=== PATIENT | female | born 1970 | race Caucasian/White ===

== ENCOUNTER 2018-11-07 08:17 | Inpatient (IN) | payer OTHER, MEDICAID | END 2018-11-17 15:47 | disposition home or self-care (01) | LOC: ER 08:17 → TELE 08:18 → ICU WEST 16:37 | DX: R00.1 Bradycardia, unspecified (principal); I24.9 Acute ischemic heart disease, unspecified; B19.10 Unspecified viral hepatitis B without hepatic coma; E44.0 Moderate protein-calorie malnutrition; E27.40 Unspecified adrenocortical insufficiency; E23.0 Hypopituitarism; L93.0 Discoid lupus erythematosus; E66.9 Obesity, unspecified; M94.0 Chondrocostal junction syndrome [Tietze]; J43.9 Emphysema, unspecified; M06.9 Rheumatoid arthritis, unspecified; Z86.73 Personal history of transient ischemic attack (TIA), and cerebral infarction without residual deficits; Z87.891 Personal history of nicotine dependence; D69.6 Thrombocytopenia, unspecified; J44.9 Chronic obstructive pulmonary disease, unspecified; E86.0 Dehydration; E87.6 Hypokalemia ==

== ENCOUNTER 2019-10-10 16:35 | Inpatient (IN) | payer OTHER, MEDICAID ==
[~2019-10-10] VITALS: Ht 165.1 cm; Wt 93.9 kg
[~2019-10-10 16:35] MED LIST: CIPR-173 PO; HYDR10T PO; LEV50T PO; METR500T PO; MIDO5TAB22 PO
[2019-10-10] MEDS ORDERED: ONDANSETRON ODT 4 MG TAB PO ONE (18:15)
[2019-10-10] MEDS ORDERED: SODIUM CHLORIDE 0.9% 1,000 ML IVB ONE (19:44)
[2019-10-10] MEDS ORDERED: ZINC SULFATE 220mg CAP or TAB PO ONE (19:45)
[2019-10-10] MEDS ORDERED: DOXYCYCLINE 100MG/250ML 250 ML IV ONE (19:45)
[2019-10-10] MEDS ORDERED: DexAMETHasone 4 MG TAB PO ONE (20:00)
[2019-10-10] MEDS ORDERED: ONDANSETRON HCL 4 MG/2 ML VIAL IV PRN (20:45)
[2019-10-10] MEDS ORDERED: TEMAZEPAM 15 MG CAP PO PRN (20:45)
[2019-10-10] MEDS ORDERED: ACETAMINOPHEN 325 MG TAB PO PRN (20:45)
[2019-10-10] MEDS: DOXYCYCLINE 100MG/250ML 250 ML IV SCH (21:52)
[2019-10-10 22:57] LABS: Basophils # (auto) 0 10 ^3/uL (0-0.2); Basophils % (auto) 0.5 % (0.0-2.0); Eosinophils # (auto) 0.1 10 ^3/uL (0-0.8); Hematocrit 44.9 % (36.0-46.0); Hemoglobin 14.5 g/dL (12.2-16.2); Lymphocytes # (auto) 1.5 10 ^3/uL (0.4-5.4); Lymphocytes % (auto) 25.6 % (10.0-50.0); Mean Corpuscular Hemoglobin 29.2 pg (28.0-32.0); Mean Corpuscular Hgb Conc. 32.2 g/dL (32.0-36.0); Mean Corpuscular Volume 90.4 fL (80.0-100.0); Monocytes # (auto) 0.3 10 ^3/uL (0-1.3); Monocytes % (auto) 5.8 % (0.0-12.0); Neutrophils % (auto) 67.1 % (37.0-80.0); Nucleated Red Blood Cells % 0.1 %; Platelet Count (auto) 126 10^3/uL (140-450); Red Blood Cells 4.97 10^6/uL (4.0-5.20); Red Cell Distribution Width 16.3 % (11.8-14.3)
[2019-10-10] MEDS: FAMOTIDINE 20 MG TAB PO SCH (22:59)
[2019-10-10 23:12] LABS: Urine Bacteria FEW /hpf (None Seen); Urine Blood Negative /uL (Negative); Urine Mucus FEW (None Seen); Urine Specific Gravity 1.017 (1.001-1.035); Urine WBC 2 /hpf (0 - 5)
[2019-10-10 23:16] LABS: Albumin 3.9 g/dL (3.4-5.0); Calcium 10.3 mg/dL (8.5-10.1); Magnesium 2.6 mg/dL (1.6-2.6); Potassium 3.3 mmol/L (3.5-5.1)
[2019-10-10 23:20] LABS: BUN/Creatinine Ratio 17.1; Bilirubin, Total 0.4 mg/dL (0.2-1.0); CRP High Sensitivity 0.21 mg/dL (< 0.3); Total Protein 7.7 g/dL (6.4-8.2)
[2019-10-11 08:11] LABS: Basophils # (auto) 0 10 ^3/uL (0-0.2); Basophils % (auto) 0.8 % (0.0-2.0); Eosinophils # (auto) 0 10 ^3/uL (0-0.8); Hematocrit 43.9 % (36.0-46.0); Hemoglobin 14.3 g/dL (12.2-16.2); Lymphocytes # (auto) 0.4 10 ^3/uL (0.4-5.4); Lymphocytes % (auto) 10.5 % (10.0-50.0); Mean Corpuscular Hemoglobin 29.1 pg (28.0-32.0); Mean Corpuscular Hgb Conc. 32.6 g/dL (32.0-36.0); Mean Corpuscular Volume 89.3 fL (80.0-100.0); Monocytes # (auto) 0.1 10 ^3/uL (0-1.3); Monocytes % (auto) 1.3 % (0.0-12.0); Neutrophils # (auto) 3.7 10 ^3/uL (1.6-8.6); Neutrophils % (auto) 87.4 % (37.0-80.0); Platelet Count (auto) 129 10^3/uL (140-450); Red Blood Cells 4.91 10^6/uL (4.0-5.20); Red Cell Distribution Width 16.2 % (11.8-14.3); White Blood Cell 4.2 10^3/uL (4.4-10.8)
[2019-10-11 08:27] LABS: Albumin 3.4 g/dL (3.4-5.0); Calcium 9.8 mg/dL (8.5-10.1)
[2019-10-11 08:35] LABS: BUN/Creatinine Ratio 16.2; Bilirubin, Total 0.4 mg/dL (0.2-1.0); Total Protein 7.1 g/dL (6.4-8.2)
[2019-10-11 08:38] LABS: Potassium 6.9 mmol/L (3.5-5.1)
--- NOTE | 2019-10-11 08:47 | NUR ---
Telemetry admit from ER [facility] GATES admitted to Telemetry unit after SBAR received. Patient oriented to Bouchra Vela RN primary RN, unit, room, bed, and unit policies regarding patient care and visiting hours. Patient now on continuous telemetry monitoring, tele box #20 and telemetry reading on arrival to unit is SR. Patient on room air. Encouraged to call if they need something. All questions and concerns addressed, patient verbalized understanding.
--- NOTE | 2019-10-11 08:48 | NUR ---
Paging monotype machinist hospitalist Critical lab of potassium:6.9 Waiting for call back.
--- NOTE | 2019-10-11 09:21 | NUR ---
Paging jury consultant hospitalist For critical potassium 6.9 Waiting for call back
[2019-10-11 09:24] VITALS: BP 111/64
[2019-10-11] MEDS: CHOLECALCIFEROL (VITD3) 2,000 UNIT CAP PO SCH (09:24)
[2019-10-11] MEDS: FAMOTIDINE 20 MG TAB PO SCH ×2 (09:24→22:14)
[2019-10-11] MEDS: DOXYCYCLINE 100MG/250ML 250 ML IV SCH ×2 (09:24→22:14)
[2019-10-11] MEDS: ASCORBIC ACID 1,000 MG TAB PO SCH (09:24)
[2019-10-11] MEDS: ENOXAPARIN SOD 40 MG/0.4 ML SYRINGE SC SCH (09:25)
--- NOTE | 2019-10-11 10:35 | NUR ---
Received call from Dr. Shaikh PLEITEZ aware of critical potassium: 6.9 MD to input new orders for redraw. Previous potassium 3.3,
[2019-10-11 12:22] VITALS: BP 126/89
--- NOTE | 2019-10-11 15:50 | NUR ---
EKG done and filed in chart for reference. Will continue to monitor.
[2019-10-11] MEDS ORDERED: HYDR200T36 PO (15:52)
[2019-10-11] MEDS ORDERED: CHOL20007 PO (15:52)
[2019-10-11] MEDS ORDERED: TEMA30CA5 PO (15:52)
[2019-10-11 17:00] VITALS: BP 101/65
[2019-10-11 22:00] VITALS: BP 100/64
--- NOTE | 2019-10-11 23:55 | NUR ---
IV removal IV DC'd due to infiltration, catheter fully intact. Pressure dressing applied to site. Patient tolerated well.
--- NOTE | 2019-10-12 00:43 | NUR ---
IV insertion IV access obtained, via clean sterile technique by inserting 22 gauge catheter at right forearm after 1 attempt. IV secured properly. No trauma to site. Patient tolerated well.
[2019-10-12 05:04] VITALS: BP 90/58
[2019-10-12 06:47] LABS: Basophils # (auto) 0 10 ^3/uL (0-0.2); Basophils % (auto) 0.5 % (0.0-2.0); Eosinophils # (auto) 0 10 ^3/uL (0-0.8); Eosinophils % (auto) 0.5 % (0.0-7.0); Hematocrit 38.1 % (36.0-46.0); Hemoglobin 12.4 g/dL (12.2-16.2); Lymphocytes # (auto) 1.5 10 ^3/uL (0.4-5.4); Lymphocytes % (auto) 32.3 % (10.0-50.0); Mean Corpuscular Hemoglobin 29.4 pg (28.0-32.0); Mean Corpuscular Hgb Conc. 32.6 g/dL (32.0-36.0); Mean Corpuscular Volume 90.1 fL (80.0-100.0); Monocytes # (auto) 0.3 10 ^3/uL (0-1.3); Monocytes % (auto) 6.2 % (0.0-12.0); Neutrophils # (auto) 2.9 10 ^3/uL (1.6-8.6); Neutrophils % (auto) 60.5 % (37.0-80.0); Nucleated Red Blood Cells % 0.2 %; Platelet Count (auto) 95 10^3/uL (140-450); Red Blood Cells 4.23 10^6/uL (4.0-5.20); Red Cell Distribution Width 15.4 % (11.8-14.3); White Blood Cell 4.7 10^3/uL (4.4-10.8)
--- NOTE | 2019-10-12 06:50 | NUR ---
Respiratory note: PT IS AWAKE, AND ALERT. NO RESPIRATORY DISTRESS NOTED. SPO2 94% ON RA, HR 48, RR 16, BS ARE DIMINISHED BILATERALLY. NO FURTHER RESPIRATORY INTERVENTIONS INDICATED. WILL CONTINUE TO MONITOR PT. CHARTING COMPLETE FROM OUTSIDE OF PT ROOM PER COVID-19 PRECAUTIONS/PROTOCOL.
--- NOTE | 2019-10-12 07:00 | NUR ---
Opening Shift Note Assumed care of patient, awake and alert. No S/S of distress/SOB or pain. Instructed on POC and to call for assist PRN, will continue to monitor for changes Q1hr and PRN.
[2019-10-12 07:08] LABS: BUN/Creatinine Ratio 22.4; Potassium 3.5 mmol/L (3.5-5.1)
[2019-10-12 08:00] VITALS: BP 110/67
--- NOTE | 2019-10-12 08:50 | NUR ---
Patient consented verbal for plaquenil.
[2019-10-12] MEDS: FAMOTIDINE 20 MG TAB PO SCH ×2 (08:55→21:43)
[2019-10-12] MEDS: ASCORBIC ACID 1,000 MG TAB PO SCH (08:55)
[2019-10-12] MEDS: DOXYCYCLINE 100MG/250ML 250 ML IV SCH (08:55)
[2019-10-12] MEDS: ENOXAPARIN SOD 40 MG/0.4 ML SYRINGE SC SCH (08:56)
[2019-10-12] MEDS: CHOLECALCIFEROL (VITD3) 2,000 UNIT CAP PO SCH (08:56)
[2019-10-12] MEDS ORDERED: ZINC SULFATE 220mg CAP or TAB PO ONE (10:45)
[2019-10-12] MEDS: HYDROcodone-ACET 5/325MG TAB PO PRN (11:56)
[2019-10-12 12:00] VITALS: BP 103/60
--- NOTE | 2019-10-12 14:04 | NUR ---
PATIENT COMPLAINING OF NAUSEA.
--- NOTE | 2019-10-12 14:06 | NUR ---
PATIENT COMPLAINS OF LOWER BACK PAIN AND NAUSEA.
--- NOTE | 2019-10-12 14:09 | NUR ---
EKG COMPLETED CALLED DR. MANDUJANO WITH RESULTS.
--- NOTE | 2019-10-12 14:17 | NUR ---
RETURNED CALL FROM DR. MANDUJANO ORDERED STAT TROPONIN AND CARDIO CONSULT.
[2019-10-12] MEDS ORDERED: ASPirin 81 mg TAB PO ONE (14:30)
--- NOTE | 2019-10-12 14:32 | NUR ---
PLACED PATIENT ON 2L N/C. VITALS DONE BP IS 94/63 O2 SAT IS 98% ON 2 L N/C HEART RATE IS 55
[2019-10-12] MEDS: NITROGLYCERIN 0.4 MG SL TAB SL PRN ×2 (14:43→14:48)
--- NOTE | 2019-10-12 14:50 | NUR ---
CHEST PRESSURE IS GONE.
--- NOTE | 2019-10-12 15:28 | NUR ---
DR. DURAN AT BEDSIDE DISCUSSING POC WITH PATIENT
[2019-10-12 17:00] VITALS: BP 96/59
--- NOTE | 2019-10-12 19:40 | NUR ---
Opening Shift Note Assumed care of patient, awake and alert. No S/S of distress/SOB or pain. Instructed on POC and questions answered. Bed locked in lowest position with side rails up x2 for safety, call light is within reach and encouraged to call for assistance PRN, will continue to monitor for changes Q1hr and PRN.
[2019-10-12 21:51] VITALS: BP 86/61
[2019-10-12] MEDS ORDERED: ATORVASTATIN 20 MG TAB PO SCH (22:00)
--- NOTE | 2019-10-13 00:20 | NUR ---
IV insertion IV access obtained, via clean sterile technique by inserting 22 gauge catheter at right forearm after 2 attempt(s). IV secured properly. No trauma to site. Patient tolerated well.
[2019-10-13] MEDS: DOXYCYCLINE 100MG/250ML 250 ML IV SCH ×3 (00:34→21:17)
[2019-10-13 05:00] VITALS: BP 95/56
[2019-10-13 06:10] LABS: Cholesterol 127 mg/dL (< 200); HDL Cholesterol 41 mg/dL (40-59); LDL Cholesterol 69 mg/dL (< 100); Triglycerides 153 mg/dL (< 150)
--- NOTE | 2019-10-13 07:43 | NUR ---
Respiratory note: POX: HR 53, RR 16, SPO2 96% ON 1L NC, BS CLEAR. NO SIGNS OR SYMPTOMS OF RESPIRATORY DISTRESS NOTED AT THIS TIME. WILL CONTINUE TO MONITOR ORDERED.
[2019-10-13 08:35] VITALS: BP 95/57
[2019-10-13] MEDS: HYDROcodone-ACET 5/325MG TAB PO PRN ×3 (09:01→23:37)
--- NOTE | 2019-10-13 09:15 | NUR ---
RECEIVED CALL FROM [facility] INFORMING ME THAT THIS PATIENT IS NEGATIVE FOR WHITLEY VIRUS.
[2019-10-13] MEDS: FAMOTIDINE 20 MG TAB PO SCH ×2 (09:38→21:18)
[2019-10-13] MEDS: ENOXAPARIN SOD 40 MG/0.4 ML SYRINGE SC SCH (09:39)
[2019-10-13] MEDS: ASCORBIC ACID 1,000 MG TAB PO SCH (09:40)
[2019-10-13] MEDS: CHOLECALCIFEROL (VITD3) 2,000 UNIT CAP PO SCH (09:40)
[2019-10-13] MEDS ORDERED: ASPirin 81 mg TAB PO SCH (10:00)
[2019-10-13] MEDS ORDERED: ZINC SULFATE 220mg CAP or TAB PO SCH (10:00)
[2019-10-13 12:54] VITALS: BP 89/46
--- NOTE | 2019-10-13 13:34 | NUR ---
TAKEN TO ROOM 217 A REPORT GIVEN TO AJ Hoffman
--- NOTE | 2019-10-13 13:35 | NUR ---
RECEIVED PATIENT FROM [address] TO ROOM 217A PATIENT IS ALERT AND ORIENTED X4, NO SOB OR S/S DISTRESS. REPORTS 8/10 GENERALIZED PAIN, WILL MEDICATE ACCORDINGLY. ON CONTINUOUS TELE #20 WITH SR 86 ON ARRIVAL. BED IN LOW AND LOCKED POSITION. ADVISED TO CALL FOR ASSISTANCE PRN. WILL CONTINUE TO MONITOR Q1 AND PRN.
[2019-10-13] MEDS ORDERED: cefTRIAXone 1GM/50ML D5W 50 ML IV ONE (15:30)
--- NOTE | 2019-10-13 16:50 | NUR ---
Radiology is requesting a 20g IV access for CT/angio. Patient currently has a 22g. patient is a hard stick, and have had multiple attempts today.
[2019-10-13 17:00] VITALS: BP 93/59
--- NOTE | 2019-10-13 17:58 | NUR ---
An order for midline in place. Requesting for 20g for CT/angio patient to remain NPO until procedure is completed.
--- NOTE | 2019-10-13 19:30 | NUR ---
Opening Shift Note Assumed care of patient, AOX4. No S/S of distress/SOB. Fall and safety precautions and in place. Call light within reach and able to use. Instructed on POC and to call for assist PRN, patient verbalized understanding and in agreement. Will continue to monitor for changes Q1hr and PRN.
--- NOTE | 2019-10-13 20:00 | NUR ---
NEW IV 20G NURSES AT BEDSIDE UNABLE TO OBTAIN MIDLINE; ABLE TO OBTAIN LAC 20G. PATIENT REMAINS NPO. WILL CALL RADIOLOGY.
--- NOTE | 2019-10-13 20:13 | NUR ---
RADIOLOGY CALLS ATTEMPTED RADIOLOGY CALLED 3 TIMES WITH NO ANSWER. PATIENT INFORMED. WILL ATTEMPT LATER.
[2019-10-13] MEDS ORDERED: IOHEXOL 350 MG/ML 100ML IJ ONE (20:33)
--- NOTE | 2019-10-13 20:40 | NUR ---
RADIOLOGY CALLED SPOKE TO RADIOLOGIST TECH; REQUESTED THAT PT BE TAKEN DOWN. PATIENT TAKEN DOWN TO RADIOLOGY VIA WHEELCHAIR IN NO DISTRESS. WILL CONTINUE TO MONITOR.
--- NOTE | 2019-10-13 20:50 | NUR ---
RETURN TO UNIT RADIOLOGY CALLED STATING PATIENT IS READY TO BE PICKED UP. PATIENT BROUGHT BACK UP TO UNIT BY THIS RN VIA WHEELCHAIR. PATIENT RETURNED TO BED BACK SAFETY WITH NO DISTRESS. POST-CONTRAST EDUCATION REINFORCED, PATIENT VERBALIZED UNDERSTANDING AND IN AGREEMENT. WILL CONTINUE TO MONITOR.
[2019-10-13 22:00] VITALS: BP 109/62
[2019-10-14 04:45] VITALS: BP 83/54
[2019-10-14 05:00] VITALS: BP 107/66
--- NOTE | 2019-10-14 05:00 | NUR ---
BP RECHECK PATIENT'S BLOOD PRESSURE SITTING POSITION AFTER AMBULATION 107/66 MMHG WITH A HEART RATE 56 BPM. WILL CONTINUE TO MONITOR.
--- NOTE | 2019-10-14 05:45 | NUR ---
LOW BP PATIENT'S BLOOD PRESSURE TAKEN IN SUPINE POSITION 83/54 MMHG WITH A HEART RATE 54 BPM. PATIENT DENIES DIZZINESS, LIGHTHEADEDNESS. WILL RECHECK. Addendum: 10/14/19 at 0554 by TAHMINA CHINCHILLA RN RN TIME CORRECTION: [id number]
--- NOTE | 2019-10-14 05:58 | NUR ---
HOSP PAGED HOSP PAGED FOR PATIENT'S LOW BLOOD PRESSURE AND C/O PAIN NOT RELIEVED BY CURRENT PAIN MEDICATION. AWAITING CALL BACK. WILL CONTINUE TO MONITOR.
[2019-10-14 06:01] LABS: Basophils # (auto) 0 10 ^3/uL (0-0.2); Basophils % (auto) 0.9 % (0.0-2.0); Eosinophils # (auto) 0.1 10 ^3/uL (0-0.8); Eosinophils % (auto) 2.2 % (0.0-7.0); Hematocrit 42.2 % (36.0-46.0); Hemoglobin 13.4 g/dL (12.2-16.2); Lymphocytes # (auto) 1.3 10 ^3/uL (0.4-5.4); Lymphocytes % (auto) 33.6 % (10.0-50.0); Mean Corpuscular Hgb Conc. 31.8 g/dL (32.0-36.0); Mean Corpuscular Volume 91.1 fL (80.0-100.0); Monocytes # (auto) 0.3 10 ^3/uL (0-1.3); Monocytes % (auto) 6.4 % (0.0-12.0); Neutrophils # (auto) 2.3 10 ^3/uL (1.6-8.6); Neutrophils % (auto) 56.9 % (37.0-80.0); Platelet Count (auto) 108 10^3/uL (140-450); Red Blood Cells 4.63 10^6/uL (4.0-5.20); Red Cell Distribution Width 15.7 % (11.8-14.3)
[2019-10-14] MEDS: HYDROcodone-ACET 5/325MG TAB PO PRN (06:25)
[2019-10-14 06:31] LABS: Potassium 3.8 mmol/L (3.5-5.1)
--- NOTE | 2019-10-14 06:35 | NUR ---
NO CALL BACK FROM ON-CALL HOSP HAVE NOT YET RECEIVED A CALL BACK FROM ON-CALL HOSPITALIST. WILL NOTIFY DY SHIFT RN IF NO CALL IS RECEIVED. WILL CONTINUE TO AWAIT CALL BACK AND CONTINUE TO MONITOR PATIENT.
[2019-10-14 06:40] LABS: Bilirubin, Total 0.2 mg/dL (0.2-1.0); Calcium 9.6 mg/dL (8.5-10.1)
--- NOTE | 2019-10-14 07:28 | NUR ---
RECEIVED PATIENT FROM [facility] SHIFT RN, AWAKE, AOX4. CURRENTLY DENIES PAIN, NO SOB OR S/S DISTRESS NOTED. PLAN OF CARE DISCUSSED. BED IN LOW AND LOCKED POSITION. ENCOURAGED TO CALL FOR ASSISTANCE PRN. PATIENT VERBALIZED UNDERSTANDING. WILL CONTINUE TO MONITOR Q1HR AND PRN.
[2019-10-14 08:00] VITALS: BP 92/54
[2019-10-14 09:00] VITALS: BP 92/54
[2019-10-14] MEDS ORDERED: cefTRIAXone 1GM/50ML D5W 50 ML IV SCH (09:00)
[2019-10-14] MEDS ORDERED: DEXT1SYP9 PO (09:32)
[2019-10-14] MEDS ORDERED: PANT40TA2 PO (09:32)
[2019-10-14] MEDS ORDERED: DOXY-112 PO (09:32)
[2019-10-14] MEDS ORDERED: ASCO500T11 PO (09:32)
[2019-10-14] MEDS: DOXYCYCLINE 100MG/250ML 250 ML IV SCH (10:00)
[2019-10-14] MEDS ORDERED: ASPirin 81 mg TAB PO SCH (10:00)
[2019-10-14] MEDS: ASCORBIC ACID 1,000 MG TAB PO SCH (10:00)
[2019-10-14] MEDS: FAMOTIDINE 20 MG TAB PO SCH (10:30)
[2019-10-14] MEDS: ENOXAPARIN SOD 40 MG/0.4 ML SYRINGE SC SCH (10:30)
[2019-10-14 11:44] VITALS: BP 94/63
--- NOTE | 2019-10-14 12:12 | NUR ---
Nutrition Assessment Notes Please refer to link for full assessment notes. Est Energy needs: [id number] kcals (22-25 kcal/kgBW) Est Protein needs: 113-150 gms/day (1.2-1.6 gm/kgBW) d/t pt respiratory distress Will continue to monitor and reassess prn. Addendum: 10/14/19 at [address] Amended: Links added.
--- NOTE | 2019-10-14 12:58 | NUR ---
PATIENT IS DISCHARGED AT THIS TIME PER MD'S ORDER. DISCHARGE AND FOLLOW UP INSTRUCTIONS PROVIDED. PATIENT IS AMBULATORY, ALERT AND ORIENTED AT THIS TIME. IV DISCONTINUED AND TELE BOX #36 RETURNED TO ICU.
[2019-10-14 13:00] VITALS: BP 90/63
== END 2019-10-14 12:58 | disposition home or self-care (01) | DRG 202 ==
LOC: ER 16:35 → TELE 16:36 → TELE-EAST 10-11 09:04 → TELE-CENTR 10-13 14:02
PROVIDERS: ADMIT Nurse Practitioner; ATTEND Internal Medicine
DX: J20.9 Acute bronchitis, unspecified (principal); J44.0 Chronic obstructive pulmonary disease with (acute) lower respiratory infection; E66.9 Obesity, unspecified; G47.30 Sleep apnea, unspecified; D69.6 Thrombocytopenia, unspecified; M06.9 Rheumatoid arthritis, unspecified; M19.90 Unspecified osteoarthritis, unspecified site; Z20.828 Contact with and (suspected) exposure to other viral communicable diseases; R07.89 Other chest pain; Z80.0 Family history of malignant neoplasm of digestive organs; Z82.49 Family history of ischemic heart disease and other diseases of the circulatory system; Z83.3 Family history of diabetes mellitus; Z90.710 Acquired absence of both cervix and uterus; Z88.5 Allergy status to narcotic agent; Z88.8 Allergy status to other drugs, medicaments and biological substances; Z88.6 Allergy status to analgesic agent; Z91.012 Allergy to eggs; Z79.899 Other long term (current) drug therapy; Z68.34 Body mass index [BMI] 34.0-34.9, adult; Z86.19 Personal history of other infectious and parasitic diseases
CPT/HCPCS: 36415; 71045; 71275; 80048; 80053; 80061; 81001; 82728; 83605; 83615; 83735; 84132; 84443; 84484; 85025; 85379; 86141; 87040; 87077; 87186; 93005; 94760; 96361; 96365; 96372; G0378; J0696; J3490; Q0162

== ENCOUNTER 2019-11-20 03:56 | Emergency (ER) | payer OTHER, MEDICAID ==
[~2019-11-20] VITALS: Ht 175.3 cm; Wt 90.7 kg
[~2019-11-20 03:56] MED LIST changes: +ASCO500T11 PO; +CHOL20007 PO; -CIPR-173 PO; +DEXT1SYP9 PO; +DOXY-112 PO; +HYDR200T36 PO; -METR500T PO; +PANT40TA2 PO; +TEMA30CA5 PO
[2019-11-20 05:12] LABS: Basophils # (auto) 0 10 ^3/uL (0-0.2); Basophils % (auto) 0.7 % (0.0-2.0); Eosinophils # (auto) 0 10 ^3/uL (0-0.8); Hematocrit 39.7 % (36.0-46.0); Lymphocytes # (auto) 0.8 10 ^3/uL (0.4-5.4); Lymphocytes % (auto) 18.7 % (10.0-50.0); Mean Corpuscular Hemoglobin 29.3 pg (28.0-32.0); Mean Corpuscular Hgb Conc. 32.7 g/dL (32.0-36.0); Mean Corpuscular Volume 89.7 fL (80.0-100.0); Monocytes # (auto) 0.4 10 ^3/uL (0-1.3); Monocytes % (auto) 8.3 % (0.0-12.0); Neutrophils # (auto) 3.1 10 ^3/uL (1.6-8.6); Neutrophils % (auto) 71.3 % (37.0-80.0); Nucleated Red Blood Cells % 0.1 %; Platelet Count (auto) 131 10^3/uL (140-450); Red Blood Cells 4.43 10^6/uL (4.0-5.20); Red Cell Distribution Width 15.9 % (11.8-14.3); White Blood Cell 4.3 10^3/uL (4.4-10.8)
[2019-11-20 05:29] LABS: Albumin 3.4 g/dL (3.4-5.0); Calcium 9.8 mg/dL (8.5-10.1); Potassium 3.6 mmol/L (3.5-5.1)
[2019-11-20 05:33] LABS: Bilirubin, Total 0.4 mg/dL (0.2-1.0); Total Protein 6.8 g/dL (6.4-8.2)
[2019-11-20] MEDS ORDERED: DexAMETHasone INJECTION 10 MG in D5W 5% 50 ML IV ONE (07:00)
[2019-11-20 07:35] VITALS: BP 119/93
[2019-11-20] MEDS ORDERED: ALBUTEROL SULF HFA 90MCG INH 200DOSE IN SCH (14:00)
[2019-11-21] MEDS ORDERED: DexAMETHasone INJECTION 10 MG in D5W 5% 50 ML IV SCH (10:00)
== END 2019-11-20 08:27 | disposition left against medical advice (07) ==
LOC: EDBD 03:56 → ER 03:58
DX: J44.9 Chronic obstructive pulmonary disease, unspecified (principal); Z79.899 Other long term (current) drug therapy; Z88.6 Allergy status to analgesic agent; Z20.828 Contact with and (suspected) exposure to other viral communicable diseases
CPT/HCPCS: 36415; 71045; 80053; 83605; 85025; 87426; 93005; 99285; C9803; J1100; J7060; U0003

== ENCOUNTER 2020-03-18 00:39 | Emergency (ER) | payer OTHER, MEDICAID ==
[~2020-03-18] VITALS: Ht 167.6 cm; Wt 89.8 kg
[2020-03-18 01:43] LABS: Basophils # (auto) 0 10 ^3/uL (0-0.2); Basophils % (auto) 0.5 % (0.0-2.0); Eosinophils # (auto) 0 10 ^3/uL (0-0.8); Eosinophils % (auto) 0.7 % (0.0-7.0); Hematocrit 41.7 % (36.0-46.0); Hemoglobin 13.4 g/dL (12.2-16.2); Lymphocytes # (auto) 0.6 10 ^3/uL (0.4-5.4); Lymphocytes % (auto) 17.3 % (10.0-50.0); Mean Corpuscular Hemoglobin 28.9 pg (28.0-32.0); Mean Corpuscular Hgb Conc. 32.1 g/dL (32.0-36.0); Monocytes # (auto) 0.3 10 ^3/uL (0-1.3); Monocytes % (auto) 7.7 % (0.0-12.0); Neutrophils # (auto) 2.5 10 ^3/uL (1.6-8.6); Neutrophils % (auto) 73.8 % (37.0-80.0); Nucleated Red Blood Cells % 0.3 %; Platelet Count (auto) 108 10^3/uL (140-450); Red Blood Cells 4.63 10^6/uL (4.0-5.20); Red Cell Distribution Width 16.7 % (11.8-14.3); White Blood Cell 3.3 10^3/uL (4.4-10.8)
[2020-03-18 01:47] LABS: Chloride 110 mmol/L (98-107); Potassium 3.8 mmol/L (3.5-5.1); Sodium 141 mmol/L (136-145)
[2020-03-18 01:51] LABS: INR 0.92 (0.9-1.15); Partial Thromboplastin Time 23.9 sec (23.0-31.2)
[2020-03-18 01:52] LABS: Alanine Aminotransferase 71 U/L (13-56); Albumin 3.5 g/dL (3.4-5.0); Anion Gap 3 (5-15); Aspartate Aminotransferase 58 U/L (15-37); BUN/Creatinine Ratio 24.4; Blood Urea Nitrogen 19 mg/dL (7-18); Calcium 9.5 mg/dL (8.5-10.1); Carbon Dioxide 28 mmol/L (21-32); GFR African American 100 mL/min; GFR Non-African American 83 mL/min; Glucose 87 mg/dL (74-106)
[2020-03-18 01:59] LABS: Alkaline Phosphatase 84 U/L (45-117); Bilirubin, Total 0.2 mg/dL (0.2-1.0); Total Protein 7.3 g/dL (6.4-8.2)
[2020-03-18 02:21] VITALS: BP 134/80
== END 2020-03-18 04:12 | disposition home or self-care (01) ==
LOC: ER 00:41
DX: U07.1 COVID-19 (principal); J44.9 Chronic obstructive pulmonary disease, unspecified; Z90.710 Acquired absence of both cervix and uterus
CPT/HCPCS: 36415; 71045; 80053; 83880; 84484; 85025; 85379; 85610; 85730; 87426; 93005

== ENCOUNTER 2020-03-21 11:04 | Emergency (ER) | payer OTHER, MEDICAID ==
[~2020-03-21] VITALS: Ht 165.1 cm; Wt 89.8 kg
[2020-03-21 12:41] LABS: Basophils # (auto) 0 10 ^3/uL (0-0.2); Basophils % (auto) 0.2 % (0.0-2.0); Eosinophils # (auto) 0 10 ^3/uL (0-0.8); Hematocrit 38.7 % (36.0-46.0); Hemoglobin 12.9 g/dL (12.2-16.2); Lymphocytes # (auto) 0.4 10 ^3/uL (0.4-5.4); Lymphocytes % (auto) 9.3 % (10.0-50.0); Mean Corpuscular Hgb Conc. 33.2 g/dL (32.0-36.0); Mean Corpuscular Volume 87.3 fL (80.0-100.0); Monocytes # (auto) 0.3 10 ^3/uL (0-1.3); Neutrophils % (auto) 83.5 % (37.0-80.0); Nucleated Red Blood Cells % 0.1 %; Red Blood Cells 4.43 10^6/uL (4.0-5.20); White Blood Cell 4.8 10^3/uL (4.4-10.8)
[2020-03-21 12:45] LABS: Calcium 8.9 mg/dL (8.5-10.1); Potassium 3.7 mmol/L (3.5-5.1)
[2020-03-21 12:48] LABS: BUN/Creatinine Ratio 16.9; Bilirubin, Total 0.4 mg/dL (0.2-1.0)
[2020-03-21] MEDS ORDERED: DOXY-112 PO (13:53)
[2020-03-21] MEDS ORDERED: ALBUAER3 IN (13:54)
[2020-03-21] MEDS ORDERED: ASCO10003 PO (13:55)
[2020-03-21] MEDS ORDERED: ZINC220C8 PO (13:56)
[2020-03-21] MEDS ORDERED: DEXA4TAB90 PO (13:58)
[2020-03-21] MEDS ORDERED: HYDR-531 PO (14:12)
[2020-03-21] MEDS ORDERED: CHOL500021 PO ×2 (14:14→14:15)
[2020-03-21] MEDS ORDERED: SODIUM CHLORIDE 0.9% 1,000 ML IV ONE (14:15)
[2020-03-21] MEDS ORDERED: METOCLOPRAMIDE HCL 5MG/ml INJ 2ml VIAL IV ONE (14:15)
[2020-03-21 14:21] VITALS: BP 91/55
== END 2020-03-21 14:55 | disposition home or self-care (01) ==
LOC: ER 11:04
DX: U07.1 COVID-19 (principal); B34.9 Viral infection, unspecified; J44.9 Chronic obstructive pulmonary disease, unspecified; Z90.710 Acquired absence of both cervix and uterus
CPT/HCPCS: 36415; 71045; 80053; 82728; 85025; 96374; 99284; J2765

== ENCOUNTER 2020-09-22 15:30 | Emergency (ER) | payer OTHER, MEDICAID ==
[~2020-09-22] VITALS: Ht 165.1 cm; Wt 86.2 kg
[2020-09-22 15:30] VITALS: BP 129/78
[~2020-09-22 15:30] MED LIST changes: +ALBUAER3 IN; +ASCO10003 PO; -ASCO500T11 PO; -CHOL20007 PO; +CHOL500021 PO; +DEXA4TAB90 PO; +HYDR-531 PO; -HYDR10T PO; -HYDR200T36 PO; +ZINC220C8 PO
== END 2020-09-22 16:35 | disposition home or self-care (01) ==
LOC: ER 15:30
DX: S00.83XA Contusion of other part of head, initial encounter (principal); J44.9 Chronic obstructive pulmonary disease, unspecified; Z90.710 Acquired absence of both cervix and uterus; Z88.2 Allergy status to sulfonamides; Z88.8 Allergy status to other drugs, medicaments and biological substances; W18.00XA Striking against unspecified object with subsequent fall, initial encounter; Y93.89 Activity, other specified; Y92.89 Other specified places as the place of occurrence of the external cause; Y99.8 Other external cause status
CPT/HCPCS: 70450; 72125